=== PATIENT | female | born 1955 ===

== ENCOUNTER → 2020-11-25 | Day surgery (SDC) | payer OTHER ==
[~2020-11-25] VITALS: Ht 152.4 cm; Wt 53.5 kg
== END | disposition home or self-care (01) ==
LOC: FAS 09:52
DX: Z12.11 Encounter for screening for malignant neoplasm of colon (principal); D12.3 Benign neoplasm of transverse colon; F41.9 Anxiety disorder, unspecified; F32.9 Major depressive disorder, single episode, unspecified
CPT/HCPCS: J2704; J7120